=== PATIENT | female | born 1955 | race Caucasian/White ===

== ENCOUNTER 2025-04-04 08:27 | Outpatient (CLI) | payer MEDICARE, BC, SELFPAY ==
--- NOTE | 2025-04-04 09:35 | P.ANES_ITS ---
Anesthesia Charges Start Date/Time Anesthesia Start Date: 04/04/25 Anesthesia Start Time: 09:04 Stop Date/Time Anesthesia Stop Date: 04/04/25 Anesthesia Stop Time: 09:34 Summary Extremes of Age - Over 70 or under 1: ENVIRONMENTAL SERVICES COORDINATOR Coding CPT Codes CPT Codes: OMAR LWR INTST NDSC NOS - [id number] ([id number]) P1 - NORMAL HEALTHY PATIENT, QK - MILK PICKUP DRIVER 2-4 CNCRNT ANEVito PROC, QX - ENVIRONMENTAL SERVICES COORDINATOR SVC W/ MD MED DIRECTION Additional Codes: Summary - Extremes of Age - Over 70 or under 1: ENVIRONMENTAL SERVICES COORDINATOR ([id number])
--- NOTE | 2025-04-04 09:35 | W.ANESCHARGE ---
Anesthesia Charges Start Date/Time Anesthesia Start Date: 04/04/25 Anesthesia Start Time: 09:04 Stop Date/Time Anesthesia Stop Date: 04/04/25 Anesthesia Stop Time: 09:34 Summary Extremes of Age - Over 70 or under 1: ENTRY LEVEL FINANCE Coding CPT Codes CPT Codes: OMAR LWR INTST NDSC NOS - [id number] ([id number]) P1 - NORMAL HEALTHY PATIENT, QK - REGISTRAR ASSISTANT 2-4 CNCRNT ANEVito PROC, QX - ENTRY LEVEL FINANCE SVC W/ MD MED DIRECTION Additional Codes: Summary - Extremes of Age - Over 70 or under 1: ENTRY LEVEL FINANCE ([id number])
--- NOTE | 2025-04-04 10:02 | P.ANES_ITS ---
Anesthesia Charges Start Date/Time Anesthesia Start Date: 04/04/25 Anesthesia Start Time: 09:04 Stop Date/Time Anesthesia Stop Date: 04/04/25 Anesthesia Stop Time: 09:34 Summary Extremes of Age - Over 70 or under 1: MDA Coding CPT Codes CPT Codes: OMAR LWR INTST NDSC NOS - [id number] ([id number]) P1 - NORMAL HEALTHY PATIENT, QK - DRILLING FIELD OPERATOR 2-4 CNCRNT ANEVito PROC, QX - CHERRY CUTTER SVC W/ MD MED DIRECTION Additional Codes: Summary - Extremes of Age - Over 70 or under 1: MDA ([id number])
--- NOTE | 2025-04-04 10:02 | W.ANESCHARGE ---
Anesthesia Charges Start Date/Time Anesthesia Start Date: 04/04/25 Anesthesia Start Time: 09:04 Stop Date/Time Anesthesia Stop Date: 04/04/25 Anesthesia Stop Time: 09:34 Summary Extremes of Age - Over 70 or under 1: MDA Coding CPT Codes CPT Codes: OMAR LWR INTST NDSC NOS - [id number] ([id number]) P1 - NORMAL HEALTHY PATIENT, QK - SAND MIXER MACHINE 2-4 CNCRNT ANEVito PROC, QX - CAREER TECHNICAL EDUCATION TEACHER SVC W/ MD MED DIRECTION Additional Codes: Summary - Extremes of Age - Over 70 or under 1: MDA ([id number])
== END 2025-04-04 08:28 | disposition home or self-care (01) ==
LOC: OP CLINIC 08:35
PROVIDERS: PCP Physician Assistant Medical; Visit Provider Internal Medicine Gastroenterology
DX: Z12.11 Encounter for screening for malignant neoplasm of colon (principal); R19.5 Other fecal abnormalities; D12.2 Benign neoplasm of ascending colon; D12.3 Benign neoplasm of transverse colon
CPT/HCPCS: 00811; 45380; 88305; 99100; J2704